=== PATIENT | female | born 1950 | race Caucasian/White ===

== ENCOUNTER 2017-01-18 16:50 | Inpatient (IN) | payer MEDICARE, BC ==
[~2017-01-18 16:50] MED LIST: AMBIEN5 M1 PO; AZASAN75 M1 PO; CITRACAL 250 MG; CITRICAL PO; COLACE100 M1 PO; DICLOFENAC SODI50 MG; ESTRACE2 M2 PO; ESTRADIOL1 MG; FLOMAX0.4 M1 PO; FOLIC ACID0.8 M1 PO; GABAPENTIN800 M2 PO; GENTEAL; GLUCOSAMINE &1 EAC2 PO; HYOSCYAMINE0.125 M2 PO; MIRALAX17 G2 PO; NEURONTIN400 M1 PO; OMEGA-3 KRILL1 EAC3 PO; OMEPRAZOLE20 M1; OMEPRAZOLE20 M4 PO; OXYCODONE-ACET1 EAC3 PO; PLAQUENIL200 M1 PO; PLAQUENIL200 MG; PREDNISONE5 M1 PO; PREDNISONE5 MG; TYLENOL EXTRA500 M1 PO; VITAMIN B-6100 M1 PO; VITAMIN B12500 MCG; VITAMIN C; VITAMIN C1000 M1 PO; VITAMIN D400 UNI4 PO; ZANAFLEX4 M; ZANAFLEX4 M3 PO; ZOFRAN4 M2 PO; [UNRECOGNIZED DRUG - CODE] PO; [UNRECOGNIZED DRUG - OTHER]; [UNRECOGNIZED DRUG - OTHER] PO
[2017-01-18] MEDS ORDERED: VITAMIN D31000 UNI3 PO (17:15)
[2017-01-18] MEDS ORDERED: NEURONTIN300 M1 PO (17:19)
[2017-01-18] MEDS ORDERED: NEURONTIN600 M1 PO (17:19)
[2017-01-18] MEDS ORDERED: OMEPRAZOLE20 M4 PO (17:20)
[2017-01-19 06:18] LABS: BASO % 0.3 % (0-2); EOS % 3.1 % (0-7); EOSINOPHIL ABSOLUTE COUNT 0.1 tho/cmm (0.0-0.7); HCT-HEMATOCRIT 32.6 % (34.0-49.0); HGB-HEMOGLOBIN 11.1 gm/dl (12.0-15.5); LYMPH % 16.3 % (20-45); LYMPH ABSOLUTE COUNT 0.5 tho/cmm (0.8-4.5); MCH (MEAN CORPUSCULAR HGB) 32.4 pg (28.0-32.0); MEAN PLATELET VOLUME 9.9 cmc (9.4-12.4); MONO % 10.9 % (0-12); MONOCYTE ABSOLUTE COUNT 0.3 tho/cmm (0.0-1.2); NEUTROPHILS % 69.4 % (40-80); PLATELET COUNT 143 tho/cmm (150-450); RED BLOOD COUNT 3.43 mil/cmm (4.00-5.20); WHITE BLOOD COUNT 2.9 tho/cmm (4.0-10.0)
[2017-01-19 06:19] LABS: PROTHROMBIN TIME 11.1 SECONDS (9.0-13.6)
[2017-01-19 06:28] LABS: ANION GAP 12 mmol/L (0-20); BLOOD UREA NITROGEN 17 mg/dl (6-24); CALCIUM 9.1 mg/dl (8.5-10.5); CARBON DIOXIDE-VENOUS 26 mmol/L (22-32); CHLORIDE 107 mmol/l (96-110); CREATININE 1.07 mg/dl (0.50-1.10); GLUCOSE 81 mg/dL (70-110); POTASSIUM 3.9 mmol/L (3.7-5.1); SODIUM 141 mmol/L (135-145); eGFR VALUE FOR BLACK 62 mL/Min
[2017-01-19 11:10] LABS: TSH-THYROID STIMULATING HORM. 5.05 uIU/ml (0.40-3.80)
[2017-01-20 06:30] LABS: EOS % 4.2 % (0-7); EOSINOPHIL ABSOLUTE COUNT 0.1 tho/cmm (0.0-0.7); HCT-HEMATOCRIT 32.1 % (34.0-49.0); LYMPH % 20.8 % (20-45); LYMPH ABSOLUTE COUNT 0.4 tho/cmm (0.8-4.5); MCH (MEAN CORPUSCULAR HGB) 32.4 pg (28.0-32.0); MCHC MEAN CORPUSCULAR HGB CONC 34.3 % (32.0-36.0); MCV (MEAN CELL VOLUME) 94.7 fl (82.0-96.0); MEAN PLATELET VOLUME 9.8 cmc (9.4-12.4); MONO % 12.3 % (0-12); MONOCYTE ABSOLUTE COUNT 0.3 tho/cmm (0.0-1.2); NEUTROPHIL ABSOLUTE COUNT 1.3 tho/cmm (1.6-8.0); NEUTROPHIL-AUTOMATED 1.3 tho/cmm (1.6-8.0); NEUTROPHILS % 62.7 % (40-80); PLATELET COUNT 135 tho/cmm (150-450); RED BLOOD COUNT 3.39 mil/cmm (4.00-5.20); WHITE BLOOD COUNT 2.1 tho/cmm (4.0-10.0)
[2017-01-20 06:38] LABS: ANION GAP 13 mmol/L (0-20); BLOOD UREA NITROGEN 13 mg/dl (6-24); CALCIUM 8.8 mg/dl (8.5-10.5); CARBON DIOXIDE-VENOUS 24 mmol/L (22-32); CHLORIDE 109 mmol/l (96-110); CREATININE 0.83 mg/dl (0.50-1.10); GLUCOSE 79 mg/dL (70-110); POTASSIUM 3.7 mmol/L (3.7-5.1); SODIUM 142 mmol/L (135-145); eGFR VALUE FOR BLACK 85 mL/Min
[2017-01-20 13:22] LABS: CSF GLUCOSE 41 mg/dl (40-75)
[2017-01-20 13:31] LABS: CSF APPEARANCE CLEAR (CLEAR); CSF COLOR COLORLESS (COLORLESS); CSF RBC CT 4 cmm (0); CSF TUBE NUMBER CSF TUBE 3; CSF WBC CT 4 cmm (0-10)
[2017-01-20 15:34] LABS: CSF LYMPHOCYTES 34 % (40-80); CSF MONOCYTES 55 % (15-45); CSF NEUTROPHILS 11 % (0-6)
[2017-01-24] MEDS ORDERED: NORCO 5-325 TA1 EACH PO (17:12)
[2017-01-24] MEDS ORDERED: KEPPRA250 M1 PO (17:15)
== END 2017-01-24 19:00 | DRG 65 ==
LOC: 5EB 16:50 → ORE 01-23 17:46 → 5EB 01-23 18:50
PROVIDERS: Internal Medicine; Psychiatry & Neurology Neurology; ADMIT Family Medicine
PROC: 009U3ZX Drainage of Spinal Canal, Percutaneous Approach, Diagnostic (ICD-10-PCS; 2017-01-20)
PROC: B01BZZZ Fluoroscopy of Spinal Cord (ICD-10-PCS; 2017-01-20)
PROC: 00B Central Nervous System and Cranial Nerves, Excision (ICD-10-PCS; principal; 2017-01-23)
DX: I62.02 Nontraumatic subacute subdural hemorrhage (principal); D61.818 Other pancytopenia; M32.9 Systemic lupus erythematosus, unspecified; R56.9 Unspecified convulsions; Z85.89 Personal history of malignant neoplasm of other organs and systems; R26.9 Unspecified abnormalities of gait and mobility; Z92.21 Personal history of antineoplastic chemotherapy; Z92.3 Personal history of irradiation; M19.90 Unspecified osteoarthritis, unspecified site; M35.00 Sjogren syndrome, unspecified; I73.00 Raynaud's syndrome without gangrene; R20.9 Unspecified disturbances of skin sensation; M21.372 Foot drop, left foot; G62.0 Drug-induced polyneuropathy; K21.9 Gastro-esophageal reflux disease without esophagitis; R55 Syncope and collapse; M54.9 Dorsalgia, unspecified; W19.XXXA Unspecified fall, initial encounter
CPT/HCPCS: C1713; G8987-GO-CI; G8988-GO-CH; J0690; J1720; J3010; J7030; J7040; J7512; Q9967